=== PATIENT | female | born 1955 | race Two or more races ===

== ENCOUNTER 2019-10-12 13:06 | Outpatient (CLI) | payer OTHER | END 2019-10-12 13:25 | disposition home or self-care (01) | LOC: MAMO-SONO 13:06 | PROVIDERS: ATTEND General Practice | DX: M85.80 Other specified disorders of bone density and structure, unspecified site (principal); F17.210 Nicotine dependence, cigarettes, uncomplicated; I25.10 Atherosclerotic heart disease of native coronary artery without angina pectoris ==

== ENCOUNTER 2019-10-21 11:06 | Outpatient (CLI) | payer OTHER | END 2019-10-21 11:23 | disposition home or self-care (01) | LOC: NUCLEAR 11:06 | PROVIDERS: ATTEND Internal Medicine | DX: M85.89 Other specified disorders of bone density and structure, multiple sites (principal); F17.210 Nicotine dependence, cigarettes, uncomplicated; I25.10 Atherosclerotic heart disease of native coronary artery without angina pectoris ==

== ENCOUNTER 2021-01-16 08:00 | Outpatient (CLI) | payer OTHER | END 2021-01-16 08:30 | disposition home or self-care (01) | LOC: PPH VACUNA 08:00 | PROVIDERS: ATTEND Emergency Medicine Pediatric Emergency Medicine | DX: Z23 Encounter for immunization (principal) ==

== ENCOUNTER 2021-06-05 15:30 | Outpatient (CLI) | payer OTHER | END 2021-06-05 15:40 | disposition home or self-care (01) | LOC: PPH VACUNA 15:30 | PROVIDERS: ATTEND Emergency Medicine Pediatric Emergency Medicine | DX: Z23 Encounter for immunization (principal) ==

== ENCOUNTER 2021-11-21 09:36 | Outpatient (CLI) | payer OTHER | END 2021-11-21 09:41 | disposition home or self-care (01) | LOC: MAMO-SONO 09:36 | PROVIDERS: ATTEND Obstetrics & Gynecology | DX: N60.11 Diffuse cystic mastopathy of right breast (principal); N60.12 Diffuse cystic mastopathy of left breast ==

== ENCOUNTER 2021-12-03 13:34 | Outpatient (CLI) | payer OTHER | END 2021-12-03 13:46 | disposition home or self-care (01) | LOC: RAD 13:34 | PROVIDERS: ATTEND Orthopaedic Surgery | DX: M79.642 Pain in left hand (principal); M79.645 Pain in left finger(s) ==

== ENCOUNTER 2022-02-11 12:44 | Outpatient (CLI) | payer OTHER | END 2022-02-11 12:54 | disposition home or self-care (01) | LOC: PPH VACUNA 12:44 | PROVIDERS: ATTEND Emergency Medicine Pediatric Emergency Medicine | DX: Z23 Encounter for immunization (principal) ==

== ENCOUNTER 2022-06-18 16:03 | Outpatient (CLI) | payer OTHER | END 2022-06-18 16:11 | disposition home or self-care (01) | LOC: RAD 16:03 | PROVIDERS: ATTEND Internal Medicine Cardiovascular Disease | DX: R06.02 Shortness of breath (principal) ==

== ENCOUNTER 2022-11-06 11:22 | Outpatient (CLI) | payer OTHER | END 2022-11-06 11:26 | disposition home or self-care (01) | LOC: RAD 11:22 | DX: G56.03 Carpal tunnel syndrome, bilateral upper limbs (principal) ==

== ENCOUNTER 2023-05-05 13:51 | Outpatient (CLI) | payer OTHER | END 2023-05-05 14:05 | disposition home or self-care (01) | LOC: TOM 13:51 | PROVIDERS: ATTEND General Practice | DX: J41.0 Simple chronic bronchitis (principal); E78.5 Hyperlipidemia, unspecified; F17.200 Nicotine dependence, unspecified, uncomplicated ==

== ENCOUNTER 2023-09-01 12:55 | Outpatient (CLI) | payer OTHER | END 2023-09-01 12:59 | disposition home or self-care (01) | LOC: RAD 12:55 | PROVIDERS: ATTEND General Practice | DX: M79.644 Pain in right finger(s) (principal); M79.641 Pain in right hand ==

== ENCOUNTER 2024-05-07 10:24 | Outpatient (CLI) | payer OTHER | END 2024-05-07 10:35 | disposition home or self-care (01) | LOC: MAMO-SONO 10:24 | PROVIDERS: ATTEND General Practice | DX: N64.4 Mastodynia (principal); Z12.31 Encounter for screening mammogram for malignant neoplasm of breast ==

== ENCOUNTER 2024-05-07 12:43 | Outpatient (CLI) | payer OTHER | END 2024-05-07 12:44 | disposition home or self-care (01) | LOC: NUCLEAR 12:43 | PROVIDERS: ATTEND General Practice | DX: M85.80 Other specified disorders of bone density and structure, unspecified site (principal); M81.0 Age-related osteoporosis without current pathological fracture ==